=== PATIENT | female | born 1930 | race Two or more races ===

== ENCOUNTER 2018-10-05 22:11 | Inpatient (IN) | payer MEDICARE, MEDICAID ==
--- NOTE | 2018-10-05 22:30 | ED Physician Chart ---
ED Chief Complaint/HPI - Patient Information Date Seen:: 10/05/18 Time Seen:: 22:24 Chief Complaint:: agitation History of Present Illness:: 88 yr old female from [facility] with parkinsons dementia chf generalized muscle weakness anemai no allergies hx of falls gets out of bed and ambulatory with shakes romanian speaking only saying untie me help me in romanian Allergies:: Allergies Allergy/AdvReac Type Severity Reaction Status Date / Time No Known Allergies Allergy Verified 10/05/18 22:15 ED Review of Systems - Review of Systems General/Constitutional: No fever, No chills, No weight loss, No weakness, No diaphoresis, No edema, No loss of appetite Skin: No skin lesions, No rash, No bruising Head: No headache, No light-headedness Eyes: No loss of vision, No pain, No diplopia ENT: No earache, No nasal drainage, No sore throat, No tinnitus Neck: No neck pain, No swelling, No thyromegaly, No stiffness, No mass noted Cardio Vascular: No chest pain, No palpitations, No PND, No orthopnea, No edema Pulmonary: No SOB, No cough, No sputum, No wheezing GI: No nausea, No vomiting, No diarrhea, No pain, No melena, No hematochezia, No constipation, No hematemesis G/U: No dysuria, No frequency, No hematuria Musculoskeletal: No bone or joint pain, No back pain, No muscle pain Endocrine: No polyuria, No polydipsia Psychiatric: No prior psych history, No depression, No anxiety, No suicidal ideation Hematopoietic: No bruising, No lymphadenopathy Allergic/Immuno: No urticaria, No angioedema Neurological: No syncope, No focal symptoms, No weakness, No paresthesia, No headache, No seizure, No dizziness, No confusion, No vertigo ED Past Medical History - Past Medical History Past Medical History: Other (parkinsons anemia dementia) ED Physical Exam - Physical Examination Other Gen/Cons comments:: pt alert talking loud Head: Atraumatic ENMT: External ears, nose nl Neck: Nontender Respiratory: Nl effort/Exclusion Cardio Vascular: RRR GI: No tenderness/rebounding/guarding Extremities: No tenderness or effusion ED Assessment - Assessment General Assessment: agitation parkinsons ED Septic Shock - . Is Septic Shock (SBP<90, OR Lactate>4 mmol\L) present?: No ED Reassessment (Disposition) - Reassessment Reassessment:: agitaion - Diagnosis Diagnosis:: parkinsons agitation - Patient Disposition Discharge/Transfer:: Residential/Boarding Care Condition at Disposition:: Stable
[2018-10-05 22:55] LABS: % BASOPHILS 0.5 % (0.0-2.0); % EOSINOPHILS 0.9 % (0.0-5.0); % LYMPHOCYTES 36.3 % (20.0-50.0); % MONOCYTES 13.9 % (2.0-10.0); % NEUTROPHILS 48.4 % (40.0-80.0); EOSINOPHILE ABSOLUTE 0.1 Th/cmm (0.1-0.4); HEMATOCRIT 35.9 % (41.0-60); HEMOGLOBIN 11.7 gm/dL (12-16); LYMPHOCYTE ABSOLUTE 2.9 Th/cmm (1.5-3.0); MEAN CELL VOLUME 96.9 fl (81-100); MEAN CORPUSCULAR HEMOGLOBIN 31.6 pg (27.0-31.0); MEAN CORPUSCULAR HGB CONC 32.6 pg (28.0-36.0); MEAN PLATELET VOLUME 7.4 fl; MONOCYTE ABSOLUTE 1.1 Th/cmm (0.3-1.0); NEUTROPHILE ABSOLUTE 3.9 Th/cmm (1.8-8.0); PLATELET COUNT 251 Th/cmm (150-400); RED BLOOD COUNT 3.71 Mil/cmm (3.80-5.20); RED CELL DISTRIBUTION WIDTH 12.9 % (11.5-20.0)
[2018-10-05 23:07] LABS: ALB/GLOB RATIO 1.3 (1.0-1.8); ALBUMIN 3.8 gm/dL (3.7-5.3); ALKALINE PHOSPHATASE 78 U/L (34-104); ANION GAP 15.2 (7.0-16.0); BILIRUBIN,TOTAL 0.6 mg/dL (0.3-1.0); BUN - UREA NITROGEN 26 mg/dL (7-25); CALCIUM SERUM 9.1 mg/dL (8.6-10.3); CHLORIDE 109 mEq/L (98-107); CREATININE - SERUM 1.3 mg/dL (0.6-1.2); GLUCOSE 113 mg/dL (70-105); POTASSIUM SERUM 4.2 mEq/L (3.5-5.1); SGOT 16 U/L (13-39); SGPT/ALT 5 U/L (7-52); SODIUM SERUM 140 mEq/L (136-145); TOTAL PROTEIN,SERUM 6.7 gm/dL (6.0-8.3)
[2018-10-06 00:16] VITALS: BP 113/55
[2018-10-06] MEDS ORDERED: Magnesium Hydroxide (MOM) 30 mL UDC PO PRN (00:24)
[2018-10-06 00:58] LABS: CHOLESTEROL 161 mg/dL (<200); HDL -HIGH DENSITY LIPOPROTEIN 56 mg/dL (23-92); TRIGLYCERIDES 67 mg/dL (<150)
[2018-10-06] MEDS ORDERED: Non-Formulary Item 1 EA (Lactose-Reduced Food [Ensure Liquid] 237 ML) PO SCH (09:00)
[2018-10-06] MEDS ORDERED: Non-Formulary Item 1 EA (Amino Acids/Protein Hydrolys [Pro-Stat Max Liquid] 30 ML) PO SCH (09:00)
[2018-10-06] MEDS ORDERED: Non-Formulary Item 1 EA (Cranberry Fruit Extract [Cranberry] 425 MG) PO SCH (09:00)
[2018-10-06] MEDS: Multivitamin Tab PO SCH (09:52)
[2018-10-06] MEDS: Ferrous Sulfate 325 MG TAB PO SCH (09:52)
[2018-10-07] MEDS: Multivitamin Tab PO SCH (09:59)
[2018-10-07] MEDS: Ferrous Sulfate 325 MG TAB PO SCH (09:59)
--- NOTE | 2018-10-07 13:56 | Psychiatric Evaluation ---
DATE OF SERVICE: 10/06/2018 CHIEF COMPLAINT: Agitation. HISTORY OF PRESENT ILLNESS: An 88-year-old female, very confused, AO x 0, not telling me her name, does not tell me where she is or what is going on, just mumbling. I speak with her in Sami, but she is still making nonsensical comments. Apparently was agitated, unable to be cared for at a lower level of care. Resting comfortably right now, mumbling something I cannot understand. PAST PSYCHIATRIC HISTORY: Advanced dementia. FAMILY HISTORY: Noncontributory. SOCIAL HISTORY: Incomplete historian but per documentation, she is coming from an address in [place]. Unclear drugs, alcohol or tobacco. MEDICATIONS: Noted. MENTAL STATUS EXAMINATION: Elderly female of stated age, some eye contact. Awake, alert, not answering any questions, very confused, disoriented, poor insight, poor judgment. No suicidal gestures. Poor impulse control. PROVISIONAL DIAGNOSES: Dementia, dementia with behavioral disturbances; psychosis, unspecified; anxiety, unspecified. Medical: Please see full H and P. ESTIMATED LENGTH OF STAY: 5-7 days. ASSESSMENT: The patient is unruly, agitated, advanced dementia. PLAN: We will continue to monitor. Treatment plan includes group as well as milieu therapy. We will make appropriate medication adjustments. CONDITIONS FOR DISCHARGE: Improved mood, improved affect, cessation of any SI or HI, better control of her agitation. JOB# [id number]
[2018-10-08] MEDS: Multivitamin Tab PO SCH (10:00)
[2018-10-08] MEDS: Ferrous Sulfate 325 MG TAB PO SCH (10:00)
--- NOTE | 2018-10-08 12:57 | Progress Notes ---
DATE: 10/07/2018 SUBJECTIVE: An 88-year-old female, currently from [facility], history of Parkinson's, dementia. The patient is at times taking medications, other times refusing medications. The patient is very confused, disoriented, yelling, yealing nonsensical comments, hyper-restorationist, can be aggressive, trying to scratch staff members, very disorganized, nonsensical. The patient is taking medications more of liquid form. ASSESSMENT: The patient is confused, combative, ongoing safety concerns. PLAN: I will be titrating dosages of medications for example increasing dosages of Seroquel. Given her ongoing and combative symptoms, confused symptoms, she is not safe for discharge. [facility]# [id number]
--- NOTE | 2018-10-08 16:37 | History & Physical ---
ADMIT DATE: 10/06/2018 INTERNAL MEDICINE CONSULTATION HISTORY OF PRESENT ILLNESS: The patient is an 88-year-old female. Current medical problems include congestive heart failure, Parkinson disease, anemia, peptic ulcer disease, gastritis, arthritis, advanced psychosis. SOCIAL HISTORY: No documented smoking, alcohol abuse. FAMILY HISTORY: Not available. REVIEW OF SYSTEMS: The patient has unstable gait, very agitated. No chest pain, no short of breath. No nausea, no vomiting. PHYSICAL EXAMINATION: VITAL SIGNS: Stable. SKIN: No cellulitis. HEENT: Normal conjunctivae. NECK: Supple. LUNGS: Clear. HEART: First and second heart sounds normal. No gallop. Systolic present. ABDOMEN: Soft. Bowel sounds are present and good. EXTREMITIES: Show arthritis. NEUROLOGIC: The patient has dementia, psychosis, and Parkinson's disease. LABORATORY DATA: Include white count 8, hemoglobin 11.7, hematocrit 35.9, platelet count of 251. Sodium 140, potassium 4.2, chloride 109, bicarbonate 20, BUN 26, creatinine of 1.3. Glucose 113. LFTs are unremarkable. Lipid profiles are reviewed. MEDICAL DIAGNOSES: Include congestive heart failure, Parkinson disease, anemia, peptic ulcer disease, arthritis. CURRENT MEDICATIONS: Include Sinemet, vitamin D3, ferrous sulfate, Lasix, milk of magnesia. JOB# [id number]
--- NOTE | 2018-10-09 06:09 | Progress Notes ---
DATE: 10/08/2018 INTERNAL MEDICINE CONSULTATION FOLLOWUP SUBJECTIVE: The patient is an 88-year-old female. Current medical problems include congestive heart failure, Parkinson's disease, coronary artery disease, peptic ulcer disease, gastritis, arthritis, osteoporosis. No new symptoms. OBJECTIVE: VITAL SIGNS: Stable. LUNGS: Clear. HEART: First and second heart sounds normal. ABDOMEN: Soft. Bowel sounds are present and good. EXTREMITIES: Show arthritis. NEUROLOGIC: The patient has Parkinson's disease and dementia. PLAN: Continue current medical management. Psych consult reviewed. JOB# [id number]
[2018-10-09] MEDS: Ferrous Sulfate 325 MG TAB PO SCH (08:19)
[2018-10-09] MEDS: Multivitamin Tab PO SCH (08:19)
--- NOTE | 2018-10-09 12:58 | Progress Notes ---
DATE: 10/08/2018 SUBJECTIVE: The patient is currently in the hospital, still confused, disoriented, stating "all is well," sometimes not taking her medications, very confused, still screaming, yelling at times. Staff having a hard time controlling her behaviors, but she is relatively calm at this time. Per nursing notes, slept for about 8 hours, easily arousable, calm at this time, but still some bouts of agitation, combative behaviors, sometimes trying to scratch. PLAN: We will continue to monitor the patient with ongoing symptoms. We will continue to give medications as the patient does seem to be mildly calmer since yesterday. JOB# [id number]
--- NOTE | 2018-10-09 23:38 | Progress Notes ---
DATE: 10/09/2018 INTERNAL MEDICINE CONSULTATION AND FOLLOWUP HISTORY OF PRESENT ILLNESS: The patient is an 88-year-old female. Current medical problems include CHF, Parkinson disease, peptic ulcer disease, gastritis, arthritis. No new symptoms. OBJECTIVE: VITAL SIGNS: Stable. LUNGS: Clear. HEART: First and second heart sounds, S1 and S2 present. ABDOMEN: Bowel sounds present. EXTREMITIES: Lower extremities show arthritis. NEUROLOGIC: The patient has dementia and Parkinson's disease. PLAN: Continue current medical management. Psych consult reviewed. JOB# [id number]
--- NOTE | 2018-10-10 05:34 | Progress Notes ---
DATE: SUBJECTIVE: The patient seen, chart reviewed, discussed with staff. The patient erratically refusing medications, still with some yelling episodes, screaming episodes, very confused, disoriented, anxious, irritable, ongoing disorientation mostly keeps to herself. The patient with advanced dementia, sometimes suspicious. ASSESSMENT: The patient remains symptomatic, withdrawn, mostly keeps to herself, erratic med compliance. Continue dosing of Seroquel. Given her ongoing symptoms, she is not safe for discharge. [facility]# [id number]
[2018-10-10] MEDS: Multivitamin Tab PO SCH (09:50)
[2018-10-10] MEDS: Ferrous Sulfate 325 MG TAB PO SCH (09:50)
--- NOTE | 2018-10-10 19:10 | Progress Notes ---
DATE: 10/10/2018 INTERNAL MEDICINE CONSULTATION FOLLOWUP SUBJECTIVE: The patient is an 88-year-old female. Current medical problems include CHF, Parkinson disease, peptic ulcer disease, gastritis, arthritis. No new symptoms. OBJECTIVE: VITAL SIGNS: Stable. LUNGS: Clear. HEART: First and second heart sounds are normal. Systolic present. ABDOMEN: Soft, bowel sounds good. EXTREMITIES: Show arthritis. NEUROLOGIC: The patient has Parkinson's disease and dementia. PLAN: Continue current medical management. Psych consult reviewed. JOB# [id number]
--- NOTE | 2018-10-10 20:20 | Progress Notes ---
DATE: 10/10/2018 SUBJECTIVE: The patient was seen today, 10/10/2018, still with some yelling episodes, screaming episodes, erratic medication compliance, can be unruly, still in a Shannen chair, very disoriented, disengaged, on exam not answering any questions, mumbling something. Discussed with staff. Fair sleep. ASSESSMENT: The patient unruly, still gets agitated, upset, yelling, making nonsensical comments, ongoing concerns about her ability to tend to her basic needs outside of the hospital setting. PLAN: We will continue to monitor. We will encourage better med compliance. Medications were reviewed including dosages and frequencies. JOB# [id number]
[2018-10-11] MEDS: Ferrous Sulfate 325 MG TAB PO SCH (09:22)
[2018-10-11] MEDS: Multivitamin Tab PO SCH (09:22)
--- NOTE | 2018-10-11 16:38 | Progress Notes ---
DATE: SUBJECTIVE: The patient seen, chart reviewed, discussed with staff. The patient is very confused, disoriented, unable to have any type of meaningful conversation, still yelling at times, unruly, gets agitated, combative, can strike out, kick out. Taking p.r.n. medications at times, better medication compliance. The patient coming in from [facility]. Fair sleep, fair appetite. Sleeping on exam, arousable, but ongoing screaming episodes. ASSESSMENT: The patient remains symptomatic, ongoing yelling episodes, screaming episodes, can lash out. Generally calmer since she came to the hospital. Tolerant to Seroquel, better compliance. [facility]# [id number]
[2018-10-12] MEDS: Ferrous Sulfate 325 MG TAB PO SCH (09:00)
[2018-10-12] MEDS: Multivitamin Tab PO SCH (10:49)
--- NOTE | 2018-10-12 18:26 | Progress Notes ---
DATE: 10/12/2018 SUBJECTIVE: The patient is confused, constantly taking, praying, very focused on praying, repetitive, very impoverished thought processes. Staff trying to reorient the patient, but she is very confused, easily agitated, impulsive, unpredictable, concerns that she may strike out, not really answering any questions today, awake, alert, in a Shannen chair, just praying, saying nonsensical things. Medications were noted. ASSESSMENT: The patient remains symptomatic in a Shannen chair, hard to control, but generally calmer from when she first got to the hospital. PLAN: We will continue to monitor, titrate and adjust treatment and medication. JOB# [id number]
--- NOTE | 2018-10-12 19:30 | Progress Notes ---
DATE: 10/12/2018 INTERNAL MEDICINE CONSULTATION FOLLOWUP SUBJECTIVE: The patient is an 88-year-old female. Current medical problems include CHF, Parkinson's disease, peptic ulcer disease, gastritis, arthritis, and osteoporosis. No new symptoms. OBJECTIVE: VITAL SIGNS: Stable. LUNGS: Clear. HEART: First and second heart sounds normal. Systolic present. ABDOMEN: Soft. Bowel sound present. EXTREMITIES: Show arthritis. NEUROLOGIC: The patient has dementia and Parkinson's disease. Continue current medical management. Psych consult reviewed. JOB# [id number]
[2018-10-13] MEDS: Multivitamin Tab PO SCH (09:23)
[2018-10-13] MEDS: Ferrous Sulfate 325 MG TAB PO SCH (09:23)
--- NOTE | 2018-10-13 17:13 | Progress Notes ---
DATE: 10/13/2018 INTERNAL MEDICINE CONSULTATION FOLLOWUP SUBJECTIVE: The patient is an 88-year-old female. Current medical problems include CHF, Parkinson disease, coronary artery disease, arthritis, peptic ulcer disease. No new symptoms. PHYSICAL EXAMINATION: VITAL SIGNS: Stable. LUNGS: Clear. HEART: First and second heart sounds normal. Systolic present. ABDOMEN: Soft. Bowel sounds are present and good. EXTREMITIES: Show arthritis. NEUROLOGIC: The patient has Parkinson disease. PLAN: Continue current medical management. Psych consult reviewed. JOB# [id number]
--- NOTE | 2018-10-13 21:16 | Progress Notes ---
DATE: 10/13/2018 The patient is still yelling, screaming, very loud, prying, ongoing symptoms indicative of agitation, making nonsensical comments, very confused. Fair sleep, fair appetite, requiring some prompting, a lot of redirection. ASSESSMENT: The patient is still loud, yelling, screaming, not safe for a lower level of care. PLAN: We will continue to monitor. I will increase her Seroquel dosing. The patient has been consistently med compliant. JOB# [id number]
[2018-10-14] MEDS: Ferrous Sulfate 325 MG TAB PO SCH (08:04)
[2018-10-14] MEDS: Multivitamin Tab PO SCH (08:05)
--- NOTE | 2018-10-14 10:34 | Progress Notes ---
DATE: 10/14/2018 INTERNAL MEDICINE CONSULTATION FOLLOWUP SUBJECTIVE: The patient is an 88-year-old female. Current medical problems include Parkinson's disease, CHF, coronary artery disease, peptic ulcer disease, gastritis, arthritis. No new symptoms. OBJECTIVE: VITAL SIGNS: Stable. LUNGS: Clear. HEART: First and second heart sounds normal. Systolic present. ABDOMEN: Soft. Bowel sounds present. EXTREMITIES: Show arthritis. NEUROLOGIC: The patient has Parkinson disease, advanced dementia. PLAN: Continue current medical management. Psych consult reviewed. [facility]# [id number]
--- NOTE | 2018-10-14 21:04 | Progress Notes ---
DATE: 10/14/2018 SUBJECTIVE: The patient is currently in the hospital, still with yelling episodes, trying to strike out at staff, at times unruly, aggressive, very confused, disoriented, talking nonsense. I attempted to contact the daughter today to discuss disposition plan and get some collateral. I left a voice message for her. The patient is sleeping fairly well, eating with some prompting. The patient is calm at this time, but is pretty labile, sometimes takes medications, other times she does not take medications. The patient is 88 years old. ASSESSMENT: The patient is confused, disoriented, unruly, ongoing safety concerns, still with behavioral disturbances. PLAN: We will continue to monitor. We will attempt to encourage better med compliance perhaps change medications to liquid dosing. We will continue to monitor. JOB# [id number]
[2018-10-15] MEDS: Multivitamin Tab PO SCH (09:05)
[2018-10-15] MEDS: Ferrous Sulfate 325 MG TAB PO SCH (09:06)
--- NOTE | 2018-10-15 16:20 | Progress Notes ---
DATE: 10/15/2018 INTERNAL MEDICINE CONSULTATION FOLLOWUP SUBJECTIVE: The patient is an 88-year-old female. Current medical problems include congestive heart failure, Parkinson disease, coronary artery disease, peptic ulcer disease, gastritis, arthritis. No new symptoms. OBJECTIVE: VITAL SIGNS: Stable. LUNGS: Clear. HEART: First and second heart sounds normal. Systolic present. ABDOMEN: Soft. Bowel sounds are present and good. EXTREMITIES: Show arthritis. NEUROLOGIC: The patient has Parkinson disease with dementia. PLAN: Continue current medical management. Psych consult reviewed. JOB# [id number]
--- NOTE | 2018-10-15 20:47 | Progress Notes ---
DATE: 10/15/2018 SUBJECTIVE: The patient was seen today, confused, disoriented. She is calm at this time refusing medications lot of times. The patient is sleeping well, eating well. Still at times agitated, very disoriented, needing help feeding. ASSESSMENT: The patient refusing treatment, medications very erratic, inconsistent, advanced dementia, confusion, lashing out at times. PLAN: Start the Exelon patch, stop Seroquel, stop Namenda, stop Aricept. She is not taking them anymore, is very inconsistent. We will also initiate Depakotara plascencia. JOB# [id number]
[2018-10-16] MEDS: Rivastigmine 4.6 mg/24 hr Tdm TD SCH (09:57)
[2018-10-16] MEDS: Multivitamin Tab PO SCH (09:59)
[2018-10-16] MEDS: Ferrous Sulfate 325 MG TAB PO SCH (09:59)
--- NOTE | 2018-10-16 11:31 | Progress Notes ---
DATE: 10/16/2018 INTERNAL MEDICINE CONSULTATION FOLLOWUP SUBJECTIVE: The patient is an 88-year-old female. Current medical problems include CHF, Parkinson disease. No new symptoms. OBJECTIVE: VITAL SIGNS: Stable. LUNGS: Showed bilateral rhonchi, has crepitation. No bronchial breathing. HEART: First and second heart sounds normal. Systolic present. ABDOMEN: Soft. Bowel sounds present and good. EXTREMITIES: Show arthritis. NEUROLOGIC: The patient has Parkinson disease. Continue current medical management and psych consult reviewed. JOB# [id number]
--- NOTE | 2018-10-16 16:11 | Progress Notes ---
DATE: 10/16/2018 The patient remains confused, disoriented, but generally calmer, more cooperative, less yelling episodes, less screaming episodes. She is taking the Depakote Sprinkles and she has better med compliance and she seems to be calmer very confused, disoriented, less aggressive, less agitated. ASSESSMENT: Improvement noted calmer, more cooperative, less violent. PLAN: We will continue to monitor. I will stop all dosings of Seroquel. We will continue dosing of Depakote. She remains impulsive, unpredictable, but does seem to be showing signs of improvement. [facility]# [id number]
[2018-10-17] MEDS: Multivitamin Tab PO SCH ×2 (09:16→10:02)
[2018-10-17] MEDS: Rivastigmine 4.6 mg/24 hr Tdm TD SCH (09:17)
[2018-10-17] MEDS: Ferrous Sulfate 325 MG TAB PO SCH ×2 (09:17→10:02)
--- NOTE | 2018-10-17 16:56 | Progress Notes ---
DATE: 10/17/2018 INTERNAL MEDICINE CONSULTATION AND FOLLOWUP SUBJECTIVE: The patient is an 88-year-old female with medical problems including Parkinson disease, congestive heart failure, peptic ulcer disease, gastritis, arthritis. No new symptoms. OBJECTIVE: VITAL SIGNS: Stable. LUNGS: Clear. HEART: First and second heart sounds normal. Systolic present. ABDOMEN: Soft. Bowel sounds are present and good. EXTREMITIES: Show arthritis. NEUROLOGIC: The patient has Parkinson disease and dementia. Continue current medical management. Psych consult reviewed. JOB# [id number]
--- NOTE | 2018-10-18 02:22 | Progress Notes ---
DATE: 10/17/2018 The patient remains confused, disoriented, still yelling and screaming. She was calmer yesterday, but seems more agitated today, scratching staff, violent and aggressive. ASSESSMENT: The patient is confused, yelling, screaming, ongoing symptoms, aggressive. I will be increasing her Depakote Sprinkle. JOB# [id number]
[2018-10-18] MEDS: Multivitamin Tab PO SCH (08:56)
[2018-10-18] MEDS: Ferrous Sulfate 325 MG TAB PO SCH (08:57)
[2018-10-18] MEDS: Rivastigmine 4.6 mg/24 hr Tdm TD SCH (08:59)
[2018-10-18] MEDS ORDERED: Haloperidol Lactate 5 mg/mL 1mL Vial IM ONE (13:58)
[2018-10-18] MEDS ORDERED: Haloperidol Lactate 5 mg/mL 1mL Vial ONE (14:02)
--- NOTE | 2018-10-18 21:41 | Progress Notes ---
DATE: SUBJECTIVE: The patient was seen, chart reviewed, and discussed with staff. The patient continues to be very confused, disoriented and irritable, often very intrusive and trying to provoke staff and peers into arguments or physical altercations. She did not require any PRNs today and has been compliant with her medications. PLAN: The patient continues to be very irritable with a history of onset that she will require continued inpatient care center treatment. We will monitor patient on a daily basis for response to medications and titrate meds as needed. JOB# [id number]
--- NOTE | 2018-10-19 01:09 | Progress Notes ---
DATE: 10/18/2018 INTERNAL MEDICINE CONSULTATION FOLLOWUP SUBJECTIVE: The patient is an 88-year-old female. Current medical problems include Parkinson's, CHF, peptic ulcer disease, gastritis, arthritis. No new symptoms. OBJECTIVE: VITAL SIGNS: Stable. LUNGS: Clear. HEART: First and second heart sound normal. ABDOMEN: Soft. Bowel sounds are present and good. EXTREMITIES: Show arthritis. NEUROLOGIC: Parkinson and dementia. PLAN: Continue current medical management. Psych consult reviewed. JOB# [id number]
[2018-10-19] MEDS: Multivitamin Tab PO SCH (08:35)
[2018-10-19] MEDS: Ferrous Sulfate 325 MG TAB PO SCH (08:35)
[2018-10-19] MEDS: Rivastigmine 4.6 mg/24 hr Tdm TD SCH (08:36)
--- NOTE | 2018-10-19 13:01 | Progress Notes ---
DATE: 10/19/2018 SUBJECTIVE: The patient is an 88-year-old female. Current medical problems include CHF, Parkinson disease, peptic ulcer disease, gastritis, arthritis. No new symptoms. OBJECTIVE: VITAL SIGNS: Vital signs are stable. LUNGS: Clear. HEART: First and second heart sounds are normal. Systolic present. ABDOMEN: Soft. Bowel sounds are present and good. EXTREMITIES: Show arthritis. NEUROLOGIC: The patient has dementia and Parkinson's disease. Continue current medical management and Psych consult reviewed and other medical consultation followup. JOB# [id number]
--- NOTE | 2018-10-20 04:22 | Progress Notes ---
DATE: SUBJECTIVE: The patient was seen, chart reviewed, and discussed with staff. The patient continues to be disoriented, irritable, impulsive and also is not easily irritated, noted to be very argumentative and easily provoked. She has, however, been compliant with her medications. PLAN: The patient continues to be very irritable and impulsive. It is felt that she will require inpatient care facility and treatment. We will monitor the patient on a daily basis for response to medications and titrate medications as needed. JOB# [id number]
[2018-10-20] MEDS: Multivitamin Tab PO SCH ×2 (09:00→09:03)
[2018-10-20] MEDS: Ferrous Sulfate 325 MG TAB PO SCH ×2 (09:00→09:06)
[2018-10-20] MEDS: Rivastigmine 4.6 mg/24 hr Tdm TD SCH (09:04)
--- NOTE | 2018-10-20 23:18 | Progress Notes ---
DATE: 10/20/2018 INTERNAL MEDICINE CONSULTATION AND FOLLOWUP SUBJECTIVE: The patient is an 88-year-old female. Current medical problems include CHF, Parkinson disease. No new symptoms. OBJECTIVE: VITAL SIGNS: Stable. LUNGS: Clear. HEART: First and second heart sounds normal. Systolic present. ABDOMEN: Soft. Bowel sounds present. EXTREMITIES: Show arthritis. NEUROLOGIC: The patient has Parkinson, dementia. PLAN: Continue current medical management. JOB# [id number]
--- NOTE | 2018-10-21 08:50 | Progress Notes ---
DATE: 10/20/2018 The patient is currently in the hospital; also, with some yelling episodes repetitive, not making any signs; spitting out medications sometimes, praying out lot in [place], hyper-moravian. Any aggressive behaviors are diminishing. Staff is noting that she is not as aggressive, not as combative, just still with some yelling and confusion. Still concerns about scratching and pinching and biting during care, but these behaviors are lessening. The patient maybe and is likely approaching her baseline. The patient did receive emergency medications on 10/18/2018, 2 medications. Scratched the DIESEL LOCOMOTIVE ENGINEER's arm. No events for the past 24 hours. PLAN: We will continue to monitor. The patient would benefit from increasing dosages of Depakote. She is only taking a partial amount of the Depakote Sprinkles with every feeding, so I will change in frequency. We will also titrate the Exelon patch. JOB# [id number]
[2018-10-21] MEDS: Rivastigmine 4.6 mg/24 hr Tdm TD SCH (09:22)
[2018-10-21] MEDS: Multivitamin Tab PO SCH (09:22)
[2018-10-21] MEDS: Ferrous Sulfate 325 MG TAB PO SCH (09:22)
--- NOTE | 2018-10-21 17:06 | Discharge Summary ---
DATE OF DISCHARGE: 10/21/2018 JUSTIFICATION FOR HOSPITALIZATION: Worsening confusion, aggression, and agitation. HISTORY OF PRESENT ILLNESS: An 88-year-old female with advanced dementia, confused, disoriented, combative, scratching, pinching, very violent towards staff, hyper-yazdanism, not making any sense, AO to name only. PAST PSYCHIATRIC HISTORY: Advanced dementia. SOCIAL HISTORY: Some family involvement. MEDICATIONS: Noted. MENTAL STATUS EXAMINATION: Stated age, annoyed female. Please see full psych eval for details. PROVISIONAL DIAGNOSES: Advanced dementia, dementia with behaviors; mood, unspecified; psychosis, unspecified; anxiety, unspecified. Under medical, please see full H and P. HOSPITAL COURSE: After initial assessment, the patient was started on medications. Medications were adjusted and titrated, but she would not take it, switched to Depakote Sprinkles which she began to take voluntarily. Over the course of treatment, she was calmer, somewhat more cooperative, no agitation. She was less aggressive, no longer scratching and trying to hit staff. Staff noting some improvement. Still at times, hyperverbal, but on the day of her discharge, she was much quieter, more compliant. Sleeping fairly well, eating with some prompting. CONDITION UPON DISCHARGE: Improved, allowing ADLs more often. Mood is more content. Affect flat. Thought processes were confused. No SI, no HI. No overt psychotic symptoms. Still somewhat hyperreligious, some yelling episodes, better impulse control. PROVISIONAL DIAGNOSES: Dementia; advanced dementia with behaviors; mood, unspecified; anxiety, unspecified. Under medical, please see full H and P. The patient is to discharge to [facility]. PROGNOSIS: The patient follows up with outpatient mental health services and remains compliant with treatment. Prognosis will improve, otherwise guarded. JOB# [id number]
--- NOTE | 2018-10-21 20:33 | Progress Notes ---
DATE: 10/21/2018 INTERNAL MEDICINE CONSULTATION FOLLOWUP SUBJECTIVE: The patient is an 88-year-old female. Current medical problems include CHF, Parkinson's disease. No new symptoms. OBJECTIVE: VITAL SIGNS: Stable. LUNGS: Clear. HEART: First and second heart sounds normal. ABDOMEN: Soft. Bowel sounds present. EXTREMITIES: Show arthritis. NEUROLOGIC: The patient has Parkinson's disease and dementia. PLAN: Continue current medical management. Psych consult reviewed. JOB# [id number]
== END 2018-10-21 18:00 | DRG 884 ==
LOC: ER 22:11 → GERO 23:15
PROVIDERS: ADMIT Psychiatry & Neurology Psychiatry; ATTEND Psychiatry & Neurology Psychiatry
DX: F03.91 Unspecified dementia, unspecified severity, with behavioral disturbance (principal); F29 Unspecified psychosis not due to a substance or known physiological condition; I50.9 Heart failure, unspecified; F41.9 Anxiety disorder, unspecified; G20 Parkinson's disease; D64.9 Anemia, unspecified; K27.9 Peptic ulcer, site unspecified, unspecified as acute or chronic, without hemorrhage or perforation; M19.90 Unspecified osteoarthritis, unspecified site; R45.1 Restlessness and agitation; I25.10 Atherosclerotic heart disease of native coronary artery without angina pectoris; K29.70 Gastritis, unspecified, without bleeding; M81.0 Age-related osteoporosis without current pathological fracture
CPT/HCPCS: 36415-UA; 80053-TC; 80061-TC; 83036-90; 85025-TC; J1630; J2060; Z7610

== ENCOUNTER 2019-02-05 20:44 | Inpatient (IN) | payer MEDICARE, MEDICAID ==
--- NOTE | 2019-02-05 20:59 | ED Physician Chart ---
ED Chief Complaint/HPI - Patient Information Date Seen:: 02/05/19 Time Seen:: 20:55 Chief Complaint:: agitation History of Present Illness:: Patient has reportedly been increasingly agitated for last 2 weeks scratching others. Allergies:: Allergies Allergy/AdvReac Type Severity Reaction Status Date / Time No Known Allergies Allergy Verified 10/05/18 22:15 Historian:: EMS Review:: Transfer documents Reviewed ED Review of Systems - Review of Systems General/Constitutional: No fever, No chills, No weight loss, No weakness, No diaphoresis, No edema, No loss of appetite Skin: No skin lesions, No rash, No bruising Head: No headache, No light-headedness Eyes: No loss of vision, No pain, No diplopia ENT: No earache, No nasal drainage, No sore throat, No tinnitus Neck: No neck pain, No swelling, No thyromegaly, No stiffness, No mass noted Cardio Vascular: No chest pain, No palpitations, No PND, No orthopnea, No edema Pulmonary: No SOB, No cough, No sputum, No wheezing GI: No nausea, No vomiting, No diarrhea, No pain, No melena, No hematochezia, No constipation, No hematemesis G/U: No dysuria, No frequency, No hematuria Musculoskeletal: No bone or joint pain, No back pain, No muscle pain Endocrine: No polyuria, No polydipsia Psychiatric: Prior psych history, No suicidal ideation Hematopoietic: No bruising, No lymphadenopathy Allergic/Immuno: No urticaria, No angioedema Neurological: No syncope, No focal symptoms, No weakness, No paresthesia, No headache, No seizure, No dizziness, No confusion, No vertigo ED Past Medical History - Past Medical History Past Medical History: CHF, Arthritis, Dementia, Other (acute gastritis; anemia; Parkinson's disease; major depression; psychosis; anxiety) Family History: Other (unavailable) Social History: Care Facility Surgical History: other (unavailable) Psychiatricy History: Depression, Dementia Medication: Reviewed Family Medical History - Family Member Mother History Unknown: Yes Ethnicity: Living Status: Unknown Hx Family Cancer: No Hx Family Coronary Artery Disease: No Hx Family Congestive Heart Failure: No Hx Family Hypertension: No Hx Family Stroke: No Hx Family Diabetes: No Hx Family Seizures: No Hx Family Dementia: No Hx Family AIDS: No Hx Family HIV: No Hx Family COPD: No Hx Family Hepatitis: No Hx Family Psychiatric Problems: No Hx Family Tuberculosis: No ED Physical Exam - Physical Examination General/Constitutional: Awake, Alert Other Gen/Cons comments:: Agitated; yelling Head: Atraumatic Eyes: Lids, conjuctiva normal Skin: Nl inspection ENMT: External ears, nose nl, Nasal exam nl Other ENMT comments:: Edentulous Neck: No nuchal rigidity Respiratory: Nl effort/Exclusion, Clear to Auscultation Cardio Vascular: RRR, No murmur, gallop, rubs, NL S1 S2 GI: No tenderness/rebounding/guarding, No organomegaly : No CVA tenderness Extremities: No edema, Normal digits & nails Other Extremities comments:: Upper extremity tremors Neuro/Psych: No focal deficits ED Labs/Radiology/EKG Results - Lab Results Results: Laboratory Results WBC 9.5 Th/cmm (4.8-10.8) 02/05/19 20:25 RBC 3.42 Mil/cmm (3.80-5.20) L 02/05/19 20:25 Hgb 11.1 gm/dL (12-16) L 02/05/19 20:25 Hct 32.9 % (41.0-60) L 02/05/19 20:25 MCV 96.3 fl (81-100) 02/05/19 20:25 MCH 32.5 pg (27.0-31.0) H 02/05/19 20:25 MCHC Differential 33.7 pg (28.0-36.0) 02/05/19 20:25 RDW 13.5 % (11.5-20.0) 02/05/19 20:25 Plt Count 218 Th/cmm (150-400) 02/05/19 20:25 MPV 7.5 fl 02/05/19 20:25 Neutrophils % 42.8 % (40.0-80.0) 02/05/19 20:25 Lymphocytes % 42.1 % (20.0-50.0) 02/05/19 20:25 Monocytes % 13.8 % (2.0-10.0) H 02/05/19 20:25 Eosinophils % 0.8 % (0.0-5.0) 02/05/19 20:25 Basophils % 0.5 % (0.0-2.0) 02/05/19 20:25 Sodium 144 mEq/L (136-145) 02/05/19 20:25 Potassium 5.0 mEq/L (3.5-5.1) 02/05/19 20:25 Chloride 109 mEq/L (98-107) H 02/05/19 20:25 Carbon Dioxide 22.2 mEq/L (21.0-31.0) 02/05/19 20:25 Anion Gap 17.8 (7.0-16.0) H 02/05/19 20:25 BUN 29 mg/dL (7-25) H 02/05/19 20:25 Creatinine 1.5 mg/dL (0.6-1.2) H 02/05/19 20:25 Est GFR ( Amer) TNP 02/05/19 20:25 Est GFR (Non-Af Amer) TNP 02/05/19 20:25 BUN/Creatinine Ratio 19.3 02/05/19 20:25 Glucose 103 mg/dL (70-105) 02/05/19 20:25 Calcium 9.2 mg/dL (8.6-10.3) 02/05/19 20:25 Total Bilirubin 0.6 mg/dL (0.3-1.0) 02/05/19 20:25 AST 18 U/L (13-39) 02/05/19 20:25 ALT 6 U/L (7-52) L 02/05/19 20:25 Alkaline Phosphatase 75 U/L (34-104) 02/05/19 20:25 Total Protein 6.5 gm/dL (6.0-8.3) 02/05/19 20:25 Albumin 3.6 gm/dL (3.7-5.3) L 02/05/19 20:25 Globulin 2.9 gm/dL 02/05/19 20:25 Albumin/Globulin Ratio 1.2 (1.0-1.8) 02/05/19 20:25 Triglycerides 78 mg/dL (<150) 02/05/19 20:25 Cholesterol 156 mg/dL (<200) 02/05/19 20:25 LDL Cholesterol Direct 100 mg/dL (75-193) 02/05/19 20:25 HDL Cholesterol 45 mg/dL (23-92) 02/05/19 20:25 Valproic Acid 18.8 ug/mL (50.0-100.0) L 02/05/19 20:25 ED Assessment - Assessment General Assessment: Patient is medically cleared to go to [facility]. There is no one in the hospital at this time to put the patient on a hold and patient is unable to sign so I spoke to Dr. Elizabeth giving him the option of admitting the patient to [facility]. He however wanted the patient kept in the emergency department all night until she can be placed on a hold tomorrow. ED Septic Shock - . Is Septic Shock (SBP<90, OR Lactate>4 mmol\L) present?: No ED Reassessment (Disposition) - Diagnosis Diagnosis:: Dementia with agitation - Patient Disposition Admitted to:: [facility] Spoke to:: Solo Elizabeth Admitting Medical Physician:: Solo Elizabeth Admitting Psych Physician:: Bry Fuentes Condition at Disposition:: Stable, Unchanged
[2019-02-05 22:15] LABS: % BASOPHILS 0.5 % (0.0-2.0); % EOSINOPHILS 0.8 % (0.0-5.0); % LYMPHOCYTES 42.1 % (20.0-50.0); % MONOCYTES 13.8 % (2.0-10.0); % NEUTROPHILS 42.8 % (40.0-80.0); EOSINOPHILE ABSOLUTE 0.1 Th/cmm (0.1-0.4); HEMATOCRIT 32.9 % (41.0-60); HEMOGLOBIN 11.1 gm/dL (12-16); MEAN CELL VOLUME 96.3 fl (81-100); MEAN CORPUSCULAR HEMOGLOBIN 32.5 pg (27.0-31.0); MEAN CORPUSCULAR HGB CONC 33.7 pg (28.0-36.0); MONOCYTE ABSOLUTE 1.3 Th/cmm (0.3-1.0); NEUTROPHILE ABSOLUTE 4.1 Th/cmm (1.8-8.0); PLATELET COUNT 218 Th/cmm (150-400); RED BLOOD COUNT 3.42 Mil/cmm (3.80-5.20); RED CELL DISTRIBUTION WIDTH 13.5 % (11.5-20.0); WHITE BLOOD COUNT 9.5 Th/cmm (4.8-10.8)
[2019-02-05 22:32] LABS: ALB/GLOB RATIO 1.2 (1.0-1.8); ALBUMIN 3.6 gm/dL (3.7-5.3); ALKALINE PHOSPHATASE 75 U/L (34-104); ANION GAP 17.8 (7.0-16.0); BILIRUBIN,TOTAL 0.6 mg/dL (0.3-1.0); BUN - UREA NITROGEN 29 mg/dL (7-25); CALCIUM SERUM 9.2 mg/dL (8.6-10.3); CARBON DIOXIDE 22.2 mEq/L (21.0-31.0); CHLORIDE 109 mEq/L (98-107); CHOLESTEROL 156 mg/dL (<200); CREATININE - SERUM 1.5 mg/dL (0.6-1.2); GLUCOSE 103 mg/dL (70-105); HDL -HIGH DENSITY LIPOPROTEIN 45 mg/dL (23-92); SGOT 18 U/L (13-39); SGPT/ALT 6 U/L (7-52); SODIUM SERUM 144 mEq/L (136-145); TOTAL PROTEIN,SERUM 6.5 gm/dL (6.0-8.3); TRIGLYCERIDES 78 mg/dL (<150)
--- NOTE | 2019-02-06 08:04 | Psychiatric Evaluation ---
DATE OF SERVICE: 02/06/2019 THE PATIENT'S AGE: 88. SEX: Female. PHYSICIAN: Dr. Harkins. CHIEF COMPLAINT: Agitation and confusion. HISTORY OF PRESENT ILLNESS: The patient is an 88-year-old female with history of dementia. The patient was transferred to the hospital because of increased agitation and inability to care for herself. Staff in [facility] has not able to be caring for the patient and the patient was transferred to the hospital. Chart reviewed and the patient interviewed. The patient is confused. She was not able to tell me when was the last time she ate or drank. She also is restless and gets agitated with the questions. The patient is also confused. She also has not been restless and has been getting angry and irritable easily. PAST PSYCHIATRIC HISTORY: The patient has history of dementia and psychosis. Dr. Zambrano evaluated the patient and he referred her to [facility] for further treatment. She has been under Dr. Zambrano in [facility]. PAST MEDICAL HISTORY: The patient has history of heart failure as well as muscle weakness and acute gastritis without bleeding. She also has anemia and Parkinson's disease. SOCIAL HISTORY: The patient lives in [facility]. No known alcohol or drug use. ALLERGIES: No known allergies. MENTAL STATUS EXAMINATION: The patient appears her stated age. Restless. Disheveled. Flat affect. Irritable mood. Thought processes are with poverty of speech. The patient seems to be preoccupied, but denied any auditory or visual hallucinations. The patient is alert and oriented to time, place, person and situation. Impaired immediate, recent and remote memories and she was not even able to tell her date. Poor insight and judgment. ASSESSMENT: PRIMARY DIAGNOSIS: Unspecified psychosis. SECONDARY DIAGNOSES: Dementia, severe, with psychotic features and behavioral modification, behavioral problems. TREATMENT PLAN: We will monitor the patient's behavior and condition closely. We will start individual as well as milieu psychotherapy. We will monitor psychotropic medications. ESTIMATED LENGTH OF STAY: 5-7 days. THE PATIENT'S STRENGTHS AND WEAKNESSES: The patient's strength is not clear at this time. Weakness is her ineffective coping and her poor judgment. AFTER DISCHARGE PLAN: The patient will return to [facility] and outpatient treatment. We will continue as an outpatient. JOB# [id number]
[2019-02-06 14:01] VITALS: BP 117/43
[2019-02-06] MEDS ORDERED: Albuterol/Ipratropium Neb 3 ML AERS HHN PRN (14:02)
[2019-02-06] MEDS ORDERED: Acetaminophen 500 MG TAB PO PRN (14:02)
[2019-02-06] MEDS ORDERED: Magnesium Hydroxide (MOM) 30 mL UDC PO PRN (14:44)
[2019-02-06] MEDS ORDERED: Maalox 30 mL Cup PO PRN (14:44)
--- NOTE | 2019-02-06 23:59 | Consultation ---
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 CURRENT MEDICAL PROBLEMS: Include Parkinson disease, CHF, coronary artery disease, peptic ulcer disease, arthritis, osteoporosis. SOCIAL HISTORY: No documented smoking. FAMILY HISTORY: Not available. REVIEW OF SYSTEMS: The patient is very agitated, very aggressive. No chest pain, no short of breath. No nausea, no vomiting. No acute infections. OBJECTIVE: VITAL SIGNS: Include blood pressure of 110/70, heart rate 80, respiration rate of 18. SKIN: Show no obvious cellulitis. HEENT: Normal conjunctivae. NECK: Supple. LUNGS: Clear. HEART: First and second heart sounds normal. ABDOMEN: Soft. Bowel sounds are present and good. EXTREMITIES: Show arthritis. NEUROLOGIC: The patient has Parkinson disease, advanced psychosis. MEDICINES: Reviewed. LABORATORY DATA: Reviewed. Internal Medicine consultation and diagnosis included as above. Continue current medical management. JOB# [id number]
[2019-02-07 06:08] LABS: A1C 5.5 % (4.8-5.6)
--- NOTE | 2019-02-07 07:03 | Progress Notes ---
DATE: 02/07/2019 SUBJECTIVE: An 88-year-old female with history of advanced dementia, noted by staff to be combative, agitated, sent by Dr. Zambrano due to increased agitation, aggressive behaviors, unruly behaviors. The patient in a Shannen chair, remains highly impulsive, unpredictable, difficult to control, easily irritated. ASSESSMENT: The patient remains symptomatic, aggressive, hard to control her behaviors, combative towards staff. PLAN: We will continue to monitor and adjust medications. [facility]# [id number]
[2019-02-07] MEDS: Multivitamin w/ Minerals Tab PO SCH (09:00)
[2019-02-07] MEDS ORDERED: Multivitamin Tab PO SCH (09:00)
[2019-02-07] MEDS: Ferrous Sulfate 325 MG TAB PO SCH (09:00)
[2019-02-07] MEDS ORDERED: Non-Formulary Item 1 EA (Cranberry Fruit Extract [Cranberry] 425 MG) PO SCH (09:00)
--- NOTE | 2019-02-07 19:55 | Progress Notes ---
DATE: 02/07/2019 INTERNAL MEDICINE CONSULTATION FOLLOWUP SUBJECTIVE: The patient is an 88-year-old female patient of mine. CURRENT MEDICAL PROBLEMS: Include Parkinson disease, CHF, coronary artery disease, peptic ulcer disease, gastritis and arthritis. No new symptoms. OBJECTIVE: VITAL SIGNS: Stable. LUNGS: Clear. HEART: First and second heart sounds normal. ABDOMEN: Soft. Bowel sound present. EXTREMITIES: Show arthritis. NEUROLOGIC: The patient has advanced psychosis, dementia and Parkinson's disease. Psych consult reviewed. Continue current medical management. JOB# [id number]
[2019-02-08] MEDS: Multivitamin w/ Minerals Tab PO SCH (09:18)
[2019-02-08] MEDS: Ferrous Sulfate 325 MG TAB PO SCH (09:18)
--- NOTE | 2019-02-08 11:43 | Progress Notes ---
DATE: 02/08/2019 SUBJECTIVE: The patient is needing Ativan for agitation and unruly spits out food, tries to hit staff, not want to eat the food, very combative, aggressive, currently in dosing of trazodone and Aricept. The patient may benefit from dosing of Namenda. She is 88 years old, currently in dosing of Depakote, ongoing safety concerns. The patient may hurt self in the process of trying to hit staff or trying to get up in a Shannen chair. We will initiate Namenda. Continue to monitor closely. JOB# [id number]
--- NOTE | 2019-02-09 00:35 | Progress Notes ---
DATE: 02/08/2019 INTERNAL MEDICINE CONSULTATION FOLLOWUP SUBJECTIVE: The patient is an 88-year-old female. CURRENT MEDICAL PROBLEMS: Include Parkinson disease, congestive heart failure, coronary artery disease, peptic ulcer disease, gastritis, arthritis and osteoporosis. No new symptoms. OBJECTIVE: VITAL SIGNS: Stable. LUNGS: Clear. HEART: First and second sounds are normal. ABDOMEN: Soft. Bowel sounds are present and good. EXTREMITIES: Show arthritis. NEUROLOGIC: The patient has dementia and Parkinson's disease. Psych consult reviewed. Continue current medical management. Internal medicine followup. JOB# [id number]
[2019-02-09] MEDS: Ferrous Sulfate 325 MG TAB PO SCH (09:27)
[2019-02-09] MEDS: Multivitamin w/ Minerals Tab PO SCH (09:28)
--- NOTE | 2019-02-09 23:27 | Progress Notes ---
DATE: 02/09/2019 SUBJECTIVE: Aggressive, confused, agitated, is still scratching, staff having a hard time with ADLs, very disoriented, rambling nonsensically, requiring a higher level of prompting, redirection. Multiple admissions, well known to staff, is a more aggressive demented patient. The patient is taking Depakote, dementia medications. We will continue to monitor and stabilize further. [facility]# [id number]
--- NOTE | 2019-02-10 00:56 | Progress Notes ---
DATE: 02/09/2019 INTERNAL MEDICINE CONSULTATION FOLLOWUP SUBJECTIVE: The patient is an 88-year-old female. Current medical problems include Parkinson's disease, congestive heart failure, coronary artery disease, peptic ulcer disease, gastritis, arthritis and osteoporosis. No new symptoms. OBJECTIVE: VITAL SIGNS: Stable. LUNGS: Clear. HEART: First and second heart sounds normal. ABDOMEN: Soft. Bowel sounds present. EXTREMITIES: Show arthritis. NEUROLOGIC: The patient has dementia and Parkinson's disease. PLAN: Psych consult reviewed. Continue current medical management. JOB# [id number]
[2019-02-10] MEDS: Multivitamin w/ Minerals Tab PO SCH (09:10)
[2019-02-10] MEDS: Ferrous Sulfate 325 MG TAB PO SCH (09:11)
--- NOTE | 2019-02-10 17:46 | Progress Notes ---
DATE: 02/10/2019 INTERNAL MEDICINE CONSULTATION FOLLOWUP. SUBJECTIVE: The patient is an 88-year-old female, currently in Geropsych Unit. MEDICAL PROBLEMS: Include Parkinson's disease, CHF, coronary artery disease, peptic ulcer disease, gastritis, arthritis. No new symptoms. OBJECTIVE: VITAL SIGNS: Stable. LUNGS: Clear. HEART: First and second sound. ABDOMEN: Soft. Bowel sounds present. EXTREMITIES: Show arthritis. NEUROLOGIC: The patient is very aggressive, Parkinson's disease present. Psych consult reviewed. PLAN: Continue current medical management. JOB# [id number]
--- NOTE | 2019-02-10 23:44 | Progress Notes ---
DATE: 02/10/2019 SUBJECTIVE: The patient is combative, highly impulsive, unpredictable, needs to be placed on a hold, very confused, disoriented, calm at this time but highly impulsive, history of violence. We will continue to monitor, ongoing safety concerns, highly disoriented. JOB# [id number]
[2019-02-11] MEDS: Ferrous Sulfate 325 MG TAB PO SCH (09:22)
[2019-02-11] MEDS: Multivitamin w/ Minerals Tab PO SCH (09:23)
--- NOTE | 2019-02-11 23:07 | Progress Notes ---
DATE: 02/11/2019 SUBJECTIVE: The patient is currently in the hospital, noted to be still aggressive, symptomatic, ongoing safety concerns, yelling, screaming, very forgetful, agitated, still trying to strike out, very disoriented, unable to have any sort of intelligible conversation with the patient. Given her severe symptoms, she is not safe for discharge. [facility]# [id number]
--- NOTE | 2019-02-12 02:18 | Progress Notes ---
DATE: 02/11/2019 INTERNAL MEDICINE CONSULTATION FOLLOWUP SUBJECTIVE: The patient is an 88-year-old female. CURRENT MEDICAL PROBLEMS: Include Parkinson's disease, CHF, coronary artery disease, peptic ulcer disease, gastritis, arthritis and osteoporosis. No new symptoms. OBJECTIVE: VITAL SIGNS: Stable. LUNGS: Clear. HEART: First and second heart sounds normal. ABDOMEN: Soft. Bowel sounds are present and good. EXTREMITIES: Show arthritis. NEUROLOGIC: The patient has dementia, psychosis and Parkinson's disease. PLAN: Psych consult reviewed. Continue current medical management. JOB# [id number]
[2019-02-12] MEDS: Multivitamin w/ Minerals Tab PO SCH (09:35)
[2019-02-12] MEDS: Ferrous Sulfate 325 MG TAB PO SCH (09:35)
[2019-02-12] MEDS: Escitalopram Oxalate 5 mg Tab PO SCH (10:00)
--- NOTE | 2019-02-12 23:15 | Progress Notes ---
DATE: 02/12/2019 INTERNAL MEDICINE CONSULTATION FOLLOWUP SUBJECTIVE: Ms. Lucinda José is an 88-year-old female. CURRENT MEDICAL PROBLEMS: Include Parkinson's disease, CHF, coronary artery disease, peptic ulcer disease, arthritis, osteoporosis. No new symptoms. OBJECTIVE: VITAL SIGNS: Stable. LUNGS: Clear. HEART: First and second heart sounds are normal. ABDOMEN: Soft. Bowel sounds present. EXTREMITIES: Show arthritis. NEUROLOGIC: The patient has advanced dementia, psychosis and Parkinson's disease. Psyche consult reviewed. Continue current medical management. JOB# [id number]
--- NOTE | 2019-02-13 00:13 | Progress Notes ---
DATE: 02/12/2019 SUBJECTIVE: The patient in the hospital, remains aggressive, confused, impulsive, unpredictable, episodes of yelling episodes, screaming episodes, still in a Shannen chair, preoccupied, mumbling nonsense, needing a lot of ADL assistance, still lashing out, scratching nurses, recent dose changes of medications. PLAN: We will continue to monitor. Continue dosing of Lexapro. Ongoing concerns mainly for the safety of others. JOB# [id number]
[2019-02-13] MEDS: Multivitamin w/ Minerals Tab PO SCH ×2 (08:48→15:55)
[2019-02-13] MEDS: Ferrous Sulfate 325 MG TAB PO SCH ×2 (08:48→15:54)
[2019-02-13] MEDS: Escitalopram Oxalate 5 mg Tab PO SCH ×2 (08:49→15:54)
--- NOTE | 2019-02-13 20:45 | Progress Notes ---
DATE: 02/13/2019 INTERNAL MEDICINE CONSULTATION FOLLOWUP. SUBJECTIVE: The patient is an 88-year-old female. CURRENT MEDICAL PROBLEMS: Include Parkinson's disease, congestive heart failure, coronary artery disease, peptic ulcer disease, gastritis, arthritis, osteoporosis. No new symptoms. OBJECTIVE: VITAL SIGNS: Stable. LUNGS: Clear. HEART: First and second heart sounds are normal. ABDOMEN: Soft. Bowel sounds good. EXTREMITIES: Show arthritis. NEUROLOGIC: The patient has Parkinson's disease, advance dementia, and psychosis. Psych consult reviewed. Continue current medical management. JOB# [id number]
--- NOTE | 2019-02-14 01:23 | Progress Notes ---
DATE: 02/13/2019 Case was discussed with staff of the patient, reviewed records. Covering for Dr. Herron. This is an 88-year-old female with a history of dementia who was admitted on 02/06/2019, transferred to the hospital because of increased agitation, unable to care for herself. She came from [facility], they were unable to care for her. The patient has been in bed, confused, refusing to eat, refusing medication, has been restless, easily agitated with a history of dementia and psychosis. Continues to have poor insight, unpredictable, impulsive, needing redirection with episodes of yelling and screaming, internally preoccupied, mumbling nonsensically, lashing out at staff. When she takes her medication, no side effects, no sedation, no nausea, no extrapyramidal symptoms. She is on Lexapro 5 mg daily, Namenda 5 mg daily, trazodone 50 mg at bedtime, Aricept 5 mg daily and Depakote 250 mg twice a day. We will continue to work with the patient in group therapy, milieu therapy, and adjust the medication as needed. JOB# [id number]
[2019-02-14] MEDS: Multivitamin w/ Minerals Tab PO SCH (09:17)
[2019-02-14] MEDS: Escitalopram Oxalate 5 mg Tab PO SCH (09:17)
[2019-02-14] MEDS: Ferrous Sulfate 325 MG TAB PO SCH (09:17)
--- NOTE | 2019-02-15 02:24 | Progress Notes ---
DATE: 02/14/2019 INTERNAL MEDICINE CONSULTATION FOLLOWUP SUBJECTIVE: The patient is a patient of mine. CURRENT MEDICAL PROBLEMS: Includes CHF, Parkinson disease, coronary artery disease, peptic ulcer disease, gastritis, arthritis and osteoporosis. No new symptoms. No new fall. No acute infection. OBJECTIVE: VITAL SIGNS: Stable. LUNGS: Clear. HEART: First and second heart sounds normal. ABDOMEN: Soft. Bowel sounds good. EXTREMITIES: Show arthritis. NEUROLOGIC: The patient has dementia, psychosis, and Parkinson's disease. Psych consult is reviewed. PLAN: Continue current medical management. PROGNOSIS: Guarded. JOB# [id number]
[2019-02-15] MEDS: Ferrous Sulfate 325 MG TAB PO SCH (08:13)
[2019-02-15] MEDS: Escitalopram Oxalate 5 mg Tab PO SCH (08:13)
[2019-02-15] MEDS: Multivitamin w/ Minerals Tab PO SCH (08:14)
--- NOTE | 2019-02-15 12:34 | Progress Notes ---
DATE: SUBJECTIVE: The patient was seen and evaluated. The patient's chart reviewed. This is Dr. Zambrano covering for Dr. Herron. IDENTIFYING DATA: An 88-year-old female with a history of dementia, brought in here ____ she was not eating, drinking. As earlier yesterday, primary psychiatrist noted that the patient continued to be easily agitated, unable to care for self, confused, refusing to eat. Today on oxah-ic-hreo evaluation, the patient talks ____ herself, does not engage in any conversation. CURRENT MEDICATIONS: Carbidopa and levodopa, Aricept 5 mg, Lexapro 5 mg, Namenda 5 mg p.o. daily. ASSESSMENT AND PLAN: History of severe dementia with behavior disturbances. We will continue with the current medication regimen to continue to reach steady state to target the patient ongoing severe behavior disturbances from her dementia. [facility]# [id number]
--- NOTE | 2019-02-16 03:19 | Psychiatric Evaluation ---
DATE OF SERVICE: 02/15/2019 The patient was seen and evaluated. The patient was interviewed. SUBJECTIVE: Today, on owke-sy-vftz, the patient is intermittently yelling, screaming, difficult to redirect and nonsensical comments. On examination, aggressive, agitated, verbally screaming "____ help me." ASSESSMENT AND PLAN: The patient with severe dementia. Refused the medication last night for sleep. We will continue to monitor and evaluating and encourage the medications. We may consider resending to open court date in the next 24 hours to further stabilize the patient. [facility]# [id number]
[2019-02-16] MEDS: Multivitamin w/ Minerals Tab PO SCH (17:29)
[2019-02-16] MEDS: Ferrous Sulfate 325 MG TAB PO SCH (17:29)
--- NOTE | 2019-02-16 21:16 | Progress Notes ---
DATE: 02/16/2019 SUBJECTIVE: The patient is very confused, yelling, screaming episodes, yelling nonsense, grabbing staff, still scratching at staff. Ongoing safety concerns, not making any sense whatsoever. 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 PLAN: We will continue to monitor. ASSESSMENT: The patient is still symptomatic, lashing out at staff. PLAN: I will be increasing conservatively her dosing of Lexapro to 7.5 mg once to see if this calms her down. Still aggressive. JOB# [id number]
--- NOTE | 2019-02-16 21:28 | Progress Notes ---
DATE: 02/16/2019 SUBJECTIVE: This is an 88-year-old female. Current medical problems include Parkinson's disease, congestive heart failure, coronary artery disease, peptic ulcer disease, gastritis, arthritis. No new symptoms. OBJECTIVE: VITAL SIGNS: Stable. LUNGS: Clear. HEART: First and second heart sounds are normal. ABDOMEN: Soft. Bowel sounds present. EXTREMITIES: Show arthritis. NEUROLOGIC: The patient has advanced dementia, psychosis, Parkinson's disease. Psych consult reviewed. PLAN: Continue current medical management. JOB# [id number]
[2019-02-17] MEDS: Escitalopram Oxalate 5 mg Tab PO SCH ×2 (09:20→11:09)
[2019-02-17] MEDS: Multivitamin w/ Minerals Tab PO SCH (09:22)
[2019-02-17] MEDS: Ferrous Sulfate 325 MG TAB PO SCH (09:22)
--- NOTE | 2019-02-17 21:53 | Progress Notes ---
DATE: 02/17/2019 SUBJECTIVE: The patient is currently in the hospital, yelling, screaming, confused, yelling nonsense, still scratching, very withdrawn on exam, mostly keeps to herself, not answering any questions. Quite at this time. Vitals were noted. Pulse mildly elevated over the past 12 hours or so. Blood pressure, is unclear. The patient is quieter than usual. We will continue to monitor her ongoing disorientation. PLAN: We will continue to monitor. I changed the Lexapro dosing back to 5 mg. We will continue to monitor her heart rate and vitals, very impulsive, highly unpredictable. JOB# [id number]
--- NOTE | 2019-02-18 09:05 | Progress Notes ---
DATE: 02/17/2019 SUBJECTIVE: The patient is a 87-year-old, a patient of mine, seen at [facility]. CURRENT MEDICAL PROBLEMS: Include CHF, Parkinson disease, coronary artery disease, peptic ulcer disease, arthritis, osteoporosis. No new symptoms. PHYSICAL EXAMINATION: VITAL SIGNS: Stable. RESPIRATORY: Clear. CARDIOVASCULAR: First and second heart sounds normal. ABDOMEN: Soft. Bowel sounds are present and good. EXTREMITIES: Show arthritis. NEUROLOGIC: The patient has advanced psychosis, dementia and Parkinson's disease. Psych consult reviewed. Continue current medical management. JOB# [id number]
[2019-02-18] MEDS: Ferrous Sulfate 325 MG TAB PO SCH (10:03)
[2019-02-18] MEDS: Multivitamin w/ Minerals Tab PO SCH (10:17)
[2019-02-18] MEDS: Escitalopram Oxalate 5 mg Tab PO SCH (10:18)
--- NOTE | 2019-02-18 19:28 | Progress Notes ---
DATE: 02/18/2019 INTERNAL MEDICINE CONSULTATION FOLLOWUP The patient is an 88-year-old female seen at [facility]. CURRENT MEDICAL PROBLEMS: Congestive heart failure, Parkinson disease, coronary artery disease, peptic ulcer disease, gastritis, arthritis and osteoporosis. No new symptoms. OBJECTIVE: VITAL SIGNS: Stable. LUNGS: Clear. HEART: First and second heart sounds are normal. ABDOMEN: Soft. EXTREMITIES: Show arthritis. NEUROLOGIC: The patient has advanced psychosis, dementia, Parkinson disease. Psych consult reviewed. PLAN: Continue current medical management. JOB# [id number]
--- NOTE | 2019-02-18 20:56 | Progress Notes ---
DATE: 02/18/2019 SUBJECTIVE: The patient in the hospital, anxious, irritable, easily agitated, still scratching staff, very impulsive, yelling, screaming, AO x 0, does not know her name or where she is, just states "thank you" in [place], still lashing out, scratching staff. We will continue to monitor. Vitals were reviewed. Continue to slowly titrate dosing of medications as tolerated. [facility]# [id number]
[2019-02-19] MEDS: Escitalopram Oxalate 5 mg Tab PO SCH (09:18)
[2019-02-19] MEDS: Multivitamin w/ Minerals Tab PO SCH (09:18)
[2019-02-19] MEDS: Ferrous Sulfate 325 MG TAB PO SCH (09:18)
--- NOTE | 2019-02-19 21:26 | Progress Notes ---
DATE: 02/19/2019 SUBJECTIVE: I asked the nurses to contact Dr. Elizabeth to let him know about the patient's tachycardia as he has been somewhat tachycardic over the past few days. Recent vitals show high heart rate. I am concerned given her age. Staff is calling Dr. Elizabeth now to inform him and see what he wants to do next. JOB# [id number]
--- NOTE | 2019-02-20 01:46 | Progress Notes ---
DATE: 02/19/2019 SUBJECTIVE: The patient is still unruly, scratching, trying to fight ____, very confused, does not really know where she is or what is going on, only knows her name, selective with the care. Requires a lot of prompting, redirection and high level of staffing care, but then fights the staff. Remains unruly and highly impulsive. The patient will go back to [facility] upon disposition. We will continue to monitor. The patient does seem to be making some improvements, somewhat less aggressive. DICTATION ENDS HERE JOB# [id number]
--- NOTE | 2019-02-20 08:20 | Progress Notes ---
DATE: 02/19/2019 SUBJECTIVE: The patient is an 88-year-old female seen at [facility]. CURRENT MEDICAL PROBLEMS: Include Parkinson's disease, congestive heart failure, coronary artery disease, peptic ulcer disease, arthritis, osteoporosis. No new symptoms. No new falls, no fever. OBJECTIVE: VITAL SIGNS: Stable. LUNGS: Show occasional rhonchi. Occasional crepitation. No bronchial breathing. HEART: First and second heart sounds are normal. ABDOMEN: Soft, no masses palpable. EXTREMITIES: Show arthritis. NEUROLOGIC: The patient has dementia, psychosis, and Parkinson's disease. Continue current medical management. Psych consult reviewed. JOB# [id number]
[2019-02-20] MEDS: Escitalopram Oxalate 5 mg Tab PO SCH (08:32)
[2019-02-20] MEDS: Ferrous Sulfate 325 MG TAB PO SCH (12:22)
[2019-02-20] MEDS: Multivitamin w/ Minerals Tab PO SCH (12:23)
--- NOTE | 2019-02-20 19:26 | Progress Notes ---
DATE: 02/20/2019 INTERNAL MEDICINE CONSULTATION FOLLOWUP. SUBJECTIVE: This is an 88-year-old female, a patient of mine, [facility]. CURRENT MEDICAL PROBLEMS: Include CHF, Parkinson's disease, coronary artery disease, peptic ulcer disease, gastritis, arthritis, osteoporosis. No new symptoms. OBJECTIVE: VITAL SIGNS: Stable. LUNGS: Clear. HEART: First and second heart sounds normal. ABDOMEN: Soft. Bowel sounds present. EXTREMITIES: Show arthritis. NEUROLOGIC: The patient has advanced dementia, psychosis, and Parkinson's disease. Psych consult reviewed. Continue current medical management. JOB# [id number]
[2019-02-21] MEDS: Escitalopram Oxalate 5 mg Tab PO SCH (08:59)
[2019-02-21] MEDS: Multivitamin w/ Minerals Tab PO SCH (09:04)
[2019-02-21] MEDS: Ferrous Sulfate 325 MG TAB PO SCH (09:05)
--- NOTE | 2019-02-21 19:57 | Progress Notes ---
DATE: 02/20/2019 SUBJECTIVE: The patient is currently in the hospital, very confused, disoriented, still striking out, seems to be calmer and not as aggressive, not scratching nurses as often. Vitals were noted. Heart rate of 65. The patient on a Shannen chair, still striking out. Poor frustration tolerance, barely oriented to her name. We will continue to monitor ongoing concerns about striking out behaviors, escalation of behaviors. We will continue to monitor. The patient seems to be marginally calmer. JOB# [id number]
--- NOTE | 2019-02-21 21:22 | Progress Notes ---
DATE: 02/21/2019 INTERNAL MEDICINE CONSULTATION FOLLOWUP The patient is a patient of mine, seen at [facility], an 88-year-old female. CURRENT MEDICAL PROBLEMS: Include CHF, coronary artery disease, Parkinson disease, arthritis. No new symptoms. OBJECTIVE: VITAL SIGNS: Stable. LUNGS: Clear. HEART: First and second heart sounds normal. ABDOMEN: Soft, no tenderness. EXTREMITIES: Show arthritis. NEUROLOGIC: The patient has advanced psychosis, dementia and Parkinson's disease. Psych consult reviewed PLAN: Continue current medical management. JOB# [id number]
[2019-02-22] MEDS: Escitalopram Oxalate 5 mg Tab PO SCH (09:19)
[2019-02-22] MEDS: Ferrous Sulfate 325 MG TAB PO SCH (09:20)
[2019-02-22] MEDS: Multivitamin w/ Minerals Tab PO SCH (09:20)
--- NOTE | 2019-02-22 10:44 | Progress Notes ---
DATE: 02/21/2019 PHYSICIAN: Dr. Oisel Butler. COVERING FOR: To Herron MD SUBJECTIVE: The patient is interviewed. The case was discussed with staff, and chart was reviewed. Per the staff, the patient has been very disorganized. She also has been spitting out her meds. She has been scratching the staff. The patient has been constantly praying, very restless, very hyper-rastafari and also really resistant to care and verbally abusive. Attempted to interview the patient in the day room. The patient is poorly cooperative. She is talking to unseen others. She is provoking anger within herself for unknown reasons and her speech is completely disorganized and unable to be deciphered. Attempted to interview the patient with a law office assistant; however, per the law office assistant, the patient is not making any sense. MENTAL STATUS EXAMINATION: The patient is an elderly female with notable Parkinson's movements. She is sitting in her chair. She has poor cooperation, poor eye contact. Her speech is mumbled and incoherent. Her mood and affect are blunted. Her thought process is grossly disorganized. Unable to assess suicidal or homicidal thoughts, but she is talking to unseen others. She also appears to be paranoid of others. She is alert and oriented only to her name. Her insight, judgment and impulse control are poor. ASSESSMENT: This is an 88-year-old female admitted to [facility] because of increased agitation and inability to care for herself. She was previously at [facility] was unable to care for the patient. The patient at this time continues with episodes of agitation. She is scratching the staff. She is extremely hyperreligious and paranoid. In addition, the patient has been verbally abusive, spitting out her medications and has poor impulse control, poor insight and has no plan for self-care at this time. PLAN: We will continue the patient's acute hospitalization. We will continue the medication as prescribed, which include Depakote, Aricept, Lexapro, Namenda and trazodone. We will consider up titration of doses. We will encourage the patient to verbalize needs and to participate in group and milieu therapy. [facility]# [id number]
--- NOTE | 2019-02-23 02:03 | Progress Notes ---
DATE: 02/22/2019 PHYSICIAN: Dr. Osiel Butler COVERING FOR: Dr. To Herron. SUBJECTIVE: The patient was interviewed. The case was discussed with staff and the chart was reviewed. Per the staff, the patient continues with thought disorganization, shouting and spitting out and scratching other staff. Today, the patient has been sleeping for most of the day. I attempted to interview the patient at bedside. The patient is sleeping deeply. She quickly arouses to her name, but quickly falls back asleep. She otherwise is unable to engage much more than this. Per the staff, the patient continues with agitation, screaming, yelling, attempting to strike staff, scratching, but appears to be slightly more calm today. No side effects noted to the medications. Otherwise, unable to assess. MENTAL STATUS EXAMINATION: The patient is an elderly female lying in the hospital bed with Parkinson's movements noted. The patient arouses to her name, but quickly falls back asleep. Disorganized thoughts. Speech is incoherent and mumbled. Mood and affect appear to be blunted. Unable to assess otherwise. Alert and oriented only to her name. Insight, judgment and impulse control are poor. ASSESSMENT: An 89-year-old female admitted to [facility] due to increased agitation and inability to care for herself. She was previously at [facility] was unable to care for the patient. The patient at this time continues with episodes of ongoing agitation, scratching staff, yelling and shouting and has poor impulse control, mood lability and also needs constant supervision and assistance and redirection by the staff. The patient today was minimally cooperative with the interview and sleeping for most of the day. PLAN: We will continue the patient's acute hospitalization. Continue medications prescribed to include Depakote, Aricept, Lexapro, Namenda, and trazodone. We will also consider up-titration of doses, but we will hold off today given that the patient has been sleeping for most of the day. Also encouraged the patient to verbalize her needs and to participate in group and milieu therapy. [facility]# [id number]
--- NOTE | 2019-02-23 03:46 | Progress Notes ---
DATE: 02/22/2019 INTERNAL MEDICINE CONSULTATION FOLLOWUP SUBJECTIVE: The patient is an 89-year-old female, a patient of mine at [facility]. CURRENT MEDICAL PROBLEMS: Include Parkinson's disease, arthritis, congestive heart failure, coronary artery disease. No new symptoms. OBJECTIVE: VITAL SIGNS: Stable. LUNGS: Clear. HEART: First and second heart sounds normal. ABDOMEN: Soft. Bowel sounds are present and good. EXTREMITIES: Show arthritis. NEUROLOGIC: The patient has advanced psychosis, dementia, and Parkinson's disease. PLAN: Psych consult reviewed. Continue current medical management. JOB# [id number]
[2019-02-23] MEDS: Ferrous Sulfate 325 MG TAB PO SCH (09:02)
[2019-02-23] MEDS: Multivitamin w/ Minerals Tab PO SCH (09:02)
[2019-02-23] MEDS: Escitalopram Oxalate 5 mg Tab PO SCH (09:04)
--- NOTE | 2019-02-23 13:14 | History & Physical Pre-OP ---
DATE OF SERVICE: 02/23/2019 HISTORY OF PRESENT ILLNESS: The patient is still combative, very strong trying to hurt staff, very confused, not even telling me her name today, trying to hit me on exam, reaching out, striking out, very impulsive, unpredictable. Vitals were reviewed, fair sleep, needing a lot of prompting and redirection. PLAN: We will continue to monitor, increase dosing of antidepressant medication to try to control agitation and calm her down and control her violence and aggressive behaviors. [facility]# [id number]
--- NOTE | 2019-02-23 21:59 | Progress Notes ---
DATE: 02/23/2019 INTERNAL MEDICINE CONSULTATION FOLLOWUP SUBJECTIVE: This is an 89-year-old female patient of mine. CURRENT MEDICAL PROBLEMS: Include Parkinson's disease, congestive heart failure, coronary artery disease, peptic ulcer disease, arthritis, osteoporosis. No new symptoms. OBJECTIVE: VITAL SIGNS: Stable. LUNGS: Clear. HEART: First and second heart sounds are normal. ABDOMEN: Soft. Bowel sounds present. EXTREMITIES: Show arthritis. NEUROLOGIC: The patient has dementia, Parkinson disease. Psych consult reviewed PLAN: Continue current medical management. JOB# [id number]
[2019-02-24] MEDS: Escitalopram Oxalate 5 mg Tab PO SCH (09:15)
[2019-02-24] MEDS: Ferrous Sulfate 325 MG TAB PO SCH (09:16)
[2019-02-24] MEDS: Multivitamin w/ Minerals Tab PO SCH (09:16)
--- NOTE | 2019-02-24 19:40 | Progress Notes ---
DATE: 02/24/2019 INTERNAL MEDICINE CONSULTATION FOLLOWUP. SUBJECTIVE: The patient is an 89-year-old [facility]. CURRENT MEDICAL PROBLEMS: Include coronary artery disease, peptic ulcer disease, gastritis, arthritis, Parkinson' disease and congestive heart failure. No new symptoms. OBJECTIVE: VITAL SIGNS: Stable. LUNGS: Clear. HEART: First and second heart sounds are normal. ABDOMEN: Soft. Bowel sounds are present and good. EXTREMITIES: Show arthritis. NEUROLOGIC: The patient has psychosis, dementia, Parkinson's disease. Psych consult reviewed. PLAN: Continue current medical management. JOB# [id number]
--- NOTE | 2019-02-25 00:49 | Discharge Summary ---
DATE OF DISCHARGE: HISTORY OF PRESENT ILLNESS: An 89-year-old female with dementia, history of hospitalizations, aggressive violence, ____ staff, very confused, AO to name only sometimes, mostly restless, trying to attack staff, angry, irritable. PAST PSYCHIATRIC HISTORY: Noted. ALLERGIES: Noted. PROVISIONAL DIAGNOSIS: Dementia, dementia with behaviors disturbances; psychosis, unspecified; mood, unspecified; anxiety, unspecified. HOSPITAL COURSE: After initial assessment, the patient was admitted. Medical history noted. Started on medications; Namenda, Aricept, Depakote, Lexapro was initiated and increased over the course of treatment. The patient's mood did improve. She was somewhat calmer, no longer violent or aggressive. Her dementia was quite advanced. She remained very confused and disoriented. Toward the latter end of treatment, no behaviors, no events. Over the 24 hours prior to discharge, she was not scratching or aggressive and taking her medications, staff noting improvement. CONDITION ON DISCHARGE: Improved, allowing ADLs, not scratching, very confused, disoriented. No suicidal gestures. No evidence of psychosis. Mildly better impulse control. PROVISIONAL DIAGNOSES: Dementia; dementia with behaviors; mood, unspecified; anxiety, unspecified; medical noted. PROGNOSIS: The patient follows up with outpatient mental health services and remains compliant with treatment. Prognosis will improve, otherwise guarded. [facility]# [id number]
[2019-02-25] MEDS: Ferrous Sulfate 325 MG TAB PO SCH (14:33)
[2019-02-25] MEDS: Escitalopram Oxalate 5 mg Tab PO SCH (14:33)
[2019-02-25] MEDS: Multivitamin w/ Minerals Tab PO SCH (14:34)
--- NOTE | 2019-02-26 02:34 | Progress Notes ---
DATE: 02/25/2019 SUBJECTIVE: The patient in the hospital, very confused, demented, AO times name sometimes, no agitation, likely at her baseline. No scratching episodes, allowing ADLs, far less violent, awaiting placement. Bed will likely be opened on Saturday. Until then, we will continue to monitor and tend to her ADL. JOB# [id number]
[2019-02-26] MEDS: Escitalopram Oxalate 5 mg Tab PO SCH (15:32)
[2019-02-26] MEDS: Ferrous Sulfate 325 MG TAB PO SCH (15:32)
[2019-02-26] MEDS: Multivitamin w/ Minerals Tab PO SCH (15:33)
--- NOTE | 2019-02-26 16:48 | Progress Notes ---
DATE: 02/26/2019 Case was discussed with staff of the patient, reviewed records. The patient a well-known case to me and I have seen her before covering for Dr. Herron. The patient continues to be unpredictable and impulsive. Dr. Herron _ chadwicklaure this is her basic level of functioning. She is a well-known case to me. I have seen her before covering for Dr. Herron. Continues to have poor insight. Unable to make safe plan for self-care. She is awaiting placement. No side effects with the medication, no sedation, no nausea. She is on Lexapro 7.5 mg daily and Aricept 5 mg at bedtime. We will continue the patient in group therapy, milieu therapy, adjust the medication as needed. JOB# [id number] MTDD
[2019-02-27] MEDS: Escitalopram Oxalate 5 mg Tab PO SCH (08:23)
[2019-02-27] MEDS: Ferrous Sulfate 325 MG TAB PO SCH (08:25)
[2019-02-27] MEDS: Multivitamin w/ Minerals Tab PO SCH (08:26)
--- NOTE | 2019-02-27 14:23 | Progress Notes ---
DATE: 02/27/2019 INTERNAL MEDICINE CONSULTATION FOLLOWUP SUBJECTIVE: The patient is an 89-year-old female, at present, patient of mine. CURRENT MEDICAL PROBLEMS: Include Parkinson's, CHF, coronary artery disease, peptic ulcer disease, gastritis, arthritis. OBJECTIVE: VITAL SIGNS: Stable. LUNGS: Clear. HEART: First and second heart sounds normal. ABDOMEN: Soft. Bowel sounds are present and good. EXTREMITIES: Show arthritis. NEUROLOGIC: The patient has Parkinson's disease, dementia, and psychosis. PLAN: Continue current medical management. Psych consult reviewed. JOB# [id number]
--- NOTE | 2019-02-27 23:14 | Progress Notes ---
DATE: 02/27/2019 Case was discussed with staff of the patient, reviewed records. Covering for Dr. Herron. The patient continues to be unpredictable and impulsive. Continues to have poor insight, unable to take care of herself. She is also awaiting placement. No side effects from the medication, no sedation, no nausea. We will continue with the patient in group therapy, milieu therapy, and adjust medication as needed. [facility]# [id number]
[2019-02-28] MEDS: Escitalopram Oxalate 5 mg Tab PO SCH (08:58)
[2019-02-28] MEDS: Multivitamin w/ Minerals Tab PO SCH (09:00)
[2019-02-28] MEDS: Ferrous Sulfate 325 MG TAB PO SCH (09:01)
--- NOTE | 2019-02-28 20:08 | Progress Notes ---
DATE: 02/28/2019 The patient is in the hospital, very unpredictable, impulsive, but likely at her baseline, not as violent, not as aggressive, difficult to place because of her history past. We are trying to place her somewhere. She is barely oriented to name and has to be reminded of her name, labile, but accepting care more. Seems to be more redirectable by staff. We are trying to get her back to [facility]. Medications were noted. Vitals were reviewed. Dr. Elizabeth following along. We will continue to monitor. JOB# [id number]
--- NOTE | 2019-02-28 20:33 | Progress Notes ---
DATE: 02/28/2019 INTERNAL MEDICINE FOLLOWUP SUBJECTIVE: The patient is an 88-year-old female. CURRENT MEDICAL PROBLEMS: Include CHF, Parkinson's and coronary artery disease, peptic ulcer disease, gastritis, arthritis and osteoporosis. No new symptoms. OBJECTIVE: VITAL SIGNS: Stable. LUNGS: Clear. HEART: First and second heart sounds are normal. ABDOMEN: Soft. Bowel sounds present. EXTREMITIES: Arthritis. NEUROLOGIC: The patient has dementia, Parkinson's, disease psychosis. PLAN: Continue current medical management. Psych consult reviewed. JOB# [id number]
[2019-03-01] MEDS: Escitalopram Oxalate 5 mg Tab PO SCH (09:13)
[2019-03-01] MEDS: Ferrous Sulfate 325 MG TAB PO SCH (09:14)
[2019-03-01] MEDS: Multivitamin w/ Minerals Tab PO SCH (09:15)
--- NOTE | 2019-03-01 17:54 | Progress Notes ---
DATE: 03/01/2019 SUBJECTIVE: The patient remains impulsive, unpredictable, still attempting to lash out at staff but a lot less, more redirectable, generally calmer, pending placement, gravely disabled. Alert and oriented to self at best, somewhat ___, making statements that do not make any sense. MEDICATIONS: Reviewed. PLAN: We will continue to monitor. We have no confirmed discharge plan. The patient is too demented and confused to fend for her basic needs. JOB# [id number]
[2019-03-02] MEDS: Escitalopram Oxalate 5 mg Tab PO SCH (09:29)
--- NOTE | 2019-03-02 15:11 | Progress Notes ---
DATE: 03/01/2019 INTERNAL MEDICINE CONSULTATION FOLLOWUP SUBJECTIVE: The patient is an 88-year-old female. CURRENT MEDICAL PROBLEMS: Include CHF, Parkinson disease, coronary artery disease, ____, osteoporosis. OBJECTIVE: VITAL SIGNS: Stable. No new symptoms. LUNGS: Clear, bilateral good entry. No adventitious sounds. HEART: First and second sound are normal. ABDOMEN: Soft. Bowel sounds are present and good. EXTREMITIES: Show arthritis. NEUROLOGIC: The patient has dementia, Parkinson disease and psychosis. Psych consult reviewed. PLAN: Continue current medical management. PROGNOSIS: Remains guarded. JOB# [id number]
[2019-03-02] MEDS: Ferrous Sulfate 325 MG TAB PO SCH (17:05)
[2019-03-02] MEDS: Multivitamin w/ Minerals Tab PO SCH (17:56)
--- NOTE | 2019-03-02 20:42 | Progress Notes ---
DATE: 03/02/2019 The patient in the hospital, confused, disoriented, forgetful, still mumbling to self, not making any sense, very confused. Fair sleep, fair appetite, resting comfortably. On exam, she is a lot calmer. She is trying desperately to confirm placements. Unable to confirm placement. Family cannot have her home. She is too disoriented, disengaged and confused to take care of herself. We are continuing to work with [employer]. Medications were noted. JOB# [id number]
[2019-03-03] MEDS: Escitalopram Oxalate 5 mg Tab PO SCH (08:55)
[2019-03-03] MEDS: Multivitamin w/ Minerals Tab PO SCH (08:56)
[2019-03-03] MEDS: Ferrous Sulfate 325 MG TAB PO SCH (08:56)
--- NOTE | 2019-03-03 09:15 | Progress Notes ---
DATE: 03/02/2019 INTERNAL MEDICINE CONSULTATION FOLLOWUP SUBJECTIVE: The patient is an 88-year-old female. CURRENT MEDICAL PROBLEMS: Include CHF, Parkinson's, coronary artery disease, peptic ulcer disease, gastritis, arthritis. No new symptoms. OBJECTIVE: VITAL SIGNS: Stable. LUNGS: Clear. HEART: First and second heart sounds are normal. ABDOMEN: Soft. Bowel sounds present. EXTREMITIES: Show arthritis. NEUROLOGIC: The patient has Parkinson disease, advanced dementia and psychosis. Psych consult reviewed. Continue current medical management. JOB# [id number]
--- NOTE | 2019-03-03 13:23 | Discharge Summary ---
DATE OF DISCHARGE: 03/03/2019 Please see discharge summary on 02/24/2019. The patient remained in the past due to placement, shelter refusing to take her back. We are working with them to try to discharge her. The patient at her baseline. No agitation, no escalation of behaviors. I will be putting in the discharge order today. No aggressive behaviors, no violence, very confused. Tolerant of treatment. No side effects noted on exam. [facility]# [id number]
[2019-03-04] MEDS: Escitalopram Oxalate 5 mg Tab PO SCH (09:40)
[2019-03-04] MEDS: Ferrous Sulfate 325 MG TAB PO SCH (09:42)
[2019-03-04] MEDS: Multivitamin w/ Minerals Tab PO SCH (09:42)
--- NOTE | 2019-03-04 13:07 | Progress Notes ---
DATE: 03/03/2019 CHIEF COMPLAINT: CHF, Parkinson disease, coronary artery disease, peptic ulcer disease, arthritis, osteoporosis. No new symptoms. OBJECTIVE: VITAL SIGNS: Stable. LUNGS: Clear. HEART: First and second heart sounds are normal. ABDOMEN: Soft. Bowel sounds good. EXTREMITIES: Show arthritis. NEUROLOGIC: The patient has Parkinson disease, psychosis and dementia. PLAN: Psych consult reviewed. Continue current medical management. PROGNOSIS: Remains guarded. JOB# [id number]
--- NOTE | 2019-03-04 23:43 | Progress Notes ---
DATE: 03/04/2019 SUBJECTIVE: [facility]. We are pending an open bed from them. The patient cannot take care of herself. She is frankly too demented, calm, generally cooperative, likely at her baseline. We will attempt to discharge today. JOB# [id number]
[2019-03-05] MEDS: Escitalopram Oxalate 5 mg Tab PO SCH (09:05)
[2019-03-05] MEDS: Ferrous Sulfate 325 MG TAB PO SCH (09:06)
[2019-03-05] MEDS: Multivitamin w/ Minerals Tab PO SCH (09:06)
--- NOTE | 2019-03-05 21:22 | Progress Notes ---
DATE: 03/05/2019 INTERNAL MEDICINE CONSULTATION FOLLOWUP. The patient is a [facility]. CURRENT MEDICAL ILLNESSES: Include CHF, Parkinson's disease, coronary artery disease, peptic ulcer disease, gastritis, arthritis, osteoporosis. OBJECTIVE: VITAL SIGNS: Stable. LUNGS: Clear. HEART: First and second heart sound normal. ABDOMEN: Soft, no tenderness. EXTREMITIES: Show arthritis. NEUROLOGIC: The patient has advanced dementia, psychosis, and Parkinson's disease. Psych consult reviewed. PLAN: Continue current medical management. JOB# [id number]
--- NOTE | 2019-03-05 22:06 | Progress Notes ---
DATE: 03/05/2019 SUBJECTIVE: The patient currently in the hospital, gravely disabled, difficult placement. Barely alert and oriented to name. Sometimes has to be reminded of her name. Pending confirmation from the daughter that [facility]. The patient may discharge today. Medications were noted. JOB# [id number]
== END 2019-03-05 17:35 | DRG 885 ==
LOC: ER 20:44 → GERO 02-06 07:21
PROVIDERS: ADMIT Psychiatry & Neurology Psychiatry; ATTEND Psychiatry & Neurology Psychiatry
DX: F29 Unspecified psychosis not due to a substance or known physiological condition (principal); F02.81 Dementia in other diseases classified elsewhere, unspecified severity, with behavioral disturbance; I50.9 Heart failure, unspecified; M19.90 Unspecified osteoarthritis, unspecified site; G20 Parkinson's disease; I25.10 Atherosclerotic heart disease of native coronary artery without angina pectoris; K27.9 Peptic ulcer, site unspecified, unspecified as acute or chronic, without hemorrhage or perforation; M81.0 Age-related osteoporosis without current pathological fracture; K29.70 Gastritis, unspecified, without bleeding; F39 Unspecified mood [affective] disorder; F41.9 Anxiety disorder, unspecified
CPT/HCPCS: 36415-UA; 80053-TC; 80061-TC; 80156-TC; 80164-TC; 83036-90; 84443-TC; 85025-TC; 86592-TC; 94760; J7070; Z7610